=== PATIENT | female | born 1960 | race Caucasian/White ===

== ENCOUNTER → 2021-12-01 10:20 | Outpatient (BNVA) | payer SELFPAY | PROVIDERS: Visit Provider Internal Medicine | DX: Z02.79 Encounter for issue of other medical certificate (principal) ==

== ENCOUNTER → 2022-11-30 10:11 | Outpatient (BNVA) | payer SELFPAY | PROVIDERS: Visit Provider Physician Assistant | DX: Z02.79 Encounter for issue of other medical certificate (principal) ==

== ENCOUNTER → 2023-12-17 09:42 | Outpatient (BNVA) | payer SELFPAY | PROVIDERS: Visit Provider Physician Assistant Medical | DX: Z02.79 Encounter for issue of other medical certificate (principal) ==

== ENCOUNTER → 2025-03-19 08:15 | Outpatient (BNVA) | payer SELFPAY | PROVIDERS: Visit Provider Physician Assistant | DX: Z02.79 Encounter for issue of other medical certificate (principal) ==